=== PATIENT | male | born 1980 | race Caucasian/White ===

== ENCOUNTER 2019-05-18 14:44 | Emergency (ER) | payer SELFPAY ==
[2019-05-18 14:45] VITALS: BP 120/67; PULSE 99; RESP 16; TEMP 37.1; O2SAT 99; BMI 38.4
--- NOTE | 2019-05-18 15:00 | EKG12_ITS ---
Test Reason : Blood Pressure : / mmHG Vent. Rate : 088 BPM Atrial Rate : 088 BPM P-R Int : 142 ms QRS Dur : 110 ms QT Int : 392 ms P-R-T Axes : 019 009 043 degrees QTc Int : 474 ms Normal sinus rhythm Normal ECG Confirmed by YNES RENDON, TABATHA ([id number]), editor & co founder YESICA HERMAN ([id number]) on 05/21/2019 11:43:13 AM Referred By: DEYVI Confirmed By:TABATHA QUICK MD
--- NOTE | 2019-05-18 15:08 | ED.DCSUM_ITS ---
- ER Visit Summary Date of Service: 05/18/19 Chief Complaint: Skunk bite and syncope History of Present Illness: The patient is a 38 M presenting after skunk bite. 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 He was petting the skunk through the cage and it bit him in the right index finger. He states he was also outside in the heat working all day. After the bite, he felt like he was going to pass out and had a syncopal episode. He denies chest pain. He denies other complaints. Physical Examination: Vitals are stable. Patient is afebrile. Alert no acute distress. HEENT exam is unremarkable. Neck is supple. Lungs are clear and equal bilaterally. Heart is regular rate and rhythm. Abdomen is soft nontender nondistended. Extremities 2 small puncture right index distal finger pad Skin is warm and dry. No focal neurologic deficit. Remainder of exam is unremarkable. Emergency Department Course and Treatment: EKG is sinus rate of 88 with no acute ischemic changes. Patient was given IV fluids. He was given rabies immunoglob ulin injected around wound and rabies vaccine. Chemistries show potassium 2.9, glucose 119, BUN 22. Troponin is negative. He was given potassium oral replacement. On reevaluation, he is feeling improved. He is advised to return for remainder of the rabies vaccine series. Advised to return to the ED for worsening complaints. Disposition: Discharge home Impression: Skunk bite, syncope This note was generated with [employer] dictation software. It may contain incorrect words, spelling, and punctuation that were not noted in review of the chart pr ior to signing ED Disposition - Plan for ED Patient: Referrals: Madan Shine MD [NON-STAFF] -
[2019-05-18] MEDS: 0.9% Normal Saline 1,000 ML 1000 ML IV (15:42)
[2019-05-18 16:10] LABS: Anion Gap 9 (5-15); BUN 22 mg/dL (7-18); Calcium,Total 8.8 mg/dL (8.5-10.1); Chloride 104 mmol/L (98-107); Creatinine, Serum 1.22 mg/dL (0.70-1.30); EST Glomerular Filtration Rate 71 mL/min (>60); Est Glom Filt Rate - Afr Amer 86 mL/min (>60); Glucose 119 mg/dL (74-106); Potassium 2.9 mmol/L (3.5-5.1); Sodium Level 138 mmol/L (136-145)
[2019-05-18] MEDS: Rabies Immune Globulin 150 UNITS/ML 2360 UNITS IM (16:31)
[2019-05-18] MEDS: Rabies Vaccine,Human Diploid 2.5 UNITS Vial IM (16:33)
--- NOTE | 2019-05-18 16:41 | ED.DEP ---
ED Disposition - Plan for ED Patient: Instructions: Vaccine Information: Rabies Referrals: Madan Shine MD [NON-STAFF] -
[2019-05-18 16:47] VITALS: BP 129/74; PULSE 76; RESP 15; O2SAT 98
== END 2019-05-18 16:47 | disposition home or self-care (01) ==
LOC: ED 15:08
PROVIDERS: Emergency Provider Emergency Medicine
DX: S60.470A Other superficial bite of right index finger, initial encounter (principal); R55 Syncope and collapse; W64.XXXA Exposure to other animate mechanical forces, initial encounter; Y93.9 Activity, unspecified; Y92.9 Unspecified place or not applicable
CPT/HCPCS: 80048; 84484; 90375; 90675; 93005; 96360; 96372; 99283; J7030; A4216